=== PATIENT | female | born 1965 | race Caucasian/White ===

== ENCOUNTER 2022-07-26 21:33 | Emergency (ER) | payer BC ==
[2022-07-26 21:52] VITALS: BP 149/88; PULSE 79; RESP 18; TEMP 97.5
--- NOTE | 2022-07-26 22:18 | XR ---
EXAMINATION TYPE: XR shoulder complete RT DATE OF EXAM: 07/26/2022 COMPARISON: NONE HISTORY: Pain TECHNIQUE: 3 views FINDINGS: There is comminuted fracture of the midshaft of the right clavicle. The glenohumeral joint appears intact. There is also comminuted fracture of the body of the scapula. There is fracture of th e anterior right third rib. There is no dislocation at the shoulder joint. IMPRESSION: Multiple fractures. No dislocation.
[2022-07-26] MEDS ORDERED: ONDANSETRON ODT 4 MG TAB PO STA (22:35)
[2022-07-26] MEDS ORDERED: HYDROmorphone 0.5 MG/0.5 ML SYRINGE IM STA (22:35)
[2022-07-27] MEDS ORDERED: ACET/COD 300 MG/30 MG STARTER PACK 6 TAB BTL PO STA (00:28)
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
== END 2022-07-27 02:02 | disposition home or self-care (01) ==
LOC: EC 21:33
DX: S42.101A Fracture of unspecified part of scapula, right shoulder, initial encounter for closed fracture (principal); S42.001A Fracture of unspecified part of right clavicle, initial encounter for closed fracture; S22.31XA Fracture of one rib, right side, initial encounter for closed fracture; Z88.0 Allergy status to penicillin; W10.1XXA Fall (on)(from) sidewalk curb, initial encounter
CPT/HCPCS: 73030; 99284; 96372; J1170